=== PATIENT | male | born 1990 | race Caucasian/White ===

== ENCOUNTER 2017-02-02 03:48 | Inpatient (IN) | payer BC ==
[2017-02-02] VITALS (18 sets, daily range): BP systolic 103–138; BP diastolic 47–81
[~2017-02-02] VITALS: Ht 185.4 cm; Wt 98.0 kg
--- NOTE | 2017-02-02 03:50 | NUR ---
RESPIRATORY THERAPIST AT THE BEDSIDE
--- NOTE | 2017-02-02 03:53 | NUR ---
DR PIZARRO AT BEDSIDE FOR MSE
--- NOTE | 2017-02-02 03:57 | NUR ---
PT ON CARDIAC MONITORING; VSS; SPO2 IS 97% ON 15LPM NRM
[2017-02-02] MEDS ORDERED: PIPERACILLIN SODIUM/TAZOBACTAM 3.375 G in IV DEXTROSE 5% 50 ML IV ONE (04:00)
[2017-02-02] MEDS ORDERED: ALBUTEROL SULFATE 2.5 MG/3 ML NEBU NEB ONE (04:00)
[2017-02-02] MEDS ORDERED: INSULIN REGULAR, HUMAN 1,000 UNITS/10 ML VIAL IV ONE (04:00)
[2017-02-02] MEDS ORDERED: SERT50TA PO (04:05)
[2017-02-02] MEDS ORDERED: BUPR-51 PO (04:05)
[2017-02-02] MEDS ORDERED: TRAZ-147 PO (04:05)
[2017-02-02] MEDS ORDERED: GABA-534 PO (04:05)
[2017-02-02] MEDS ORDERED: QUET50TA22 PO (04:05)
[2017-02-02] MEDS ORDERED: ALBUTEROL SULFATE 2.5 MG/3 ML NEBU ONE (04:11)
[2017-02-02] MEDS ORDERED: INSU3INS6 SUBCUT (04:21)
[2017-02-02] MEDS ORDERED: VALE450C PO (04:21)
[2017-02-02] MEDS ORDERED: INSU100I14 SUBCUT (04:21)
--- NOTE | 2017-02-02 04:21 | NUR ---
REP JOHNIE SANTOYO FROM [facility] , CAME TO DROP OFF PTS BELONGINGS AND MEDICATIONS, REP STATES THEY OFFER IOP, PT WILL NOT BE ABLE TO RETURN DUE TO PT REQUIRING HIGHER LEVER OF CARE, STATES THEY WOULD LIKE TO GET HIM INTO C-CHANGE A DETOX AND REHAB FACILITY....
[2017-02-02] MEDS ORDERED: INSULIN REGULAR, HUMAN 300 UNIT/3 ML VIAL ONE (04:42)
[2017-02-02] MEDS ORDERED: PIPERACILLIN/TAZOBACTAM/D5W 50 ML IV ONE (04:43)
[2017-02-02 04:49] LABS: BASOPHILS # (AUTO) 0.1 K/uL (0.0-8.0); BASOPHILS % (AUTO) 0.6 % (0.0-2.0); EOSINOPHILS # (AUTO) 0.1 K/uL (0.0-0.7); EOSINOPHILS % (AUTO) 0.6 % (0.0-7.0); HEMATOCRIT 47.2 % (40-50); HEMOGLOBIN 15.4 G/DL (14.0-18.0); LYMPHOCYTES # (AUTO) 1.6 K/UL (0.8-4.8); LYMPHOCYTES % (AUTO) 10.3 % (20.5-51.5); MEAN CORPUSCULAR HEMOGLOBIN 28.5 UUG (27.0-31.0); MEAN CORPUSCULAR HGB CONC 33 g/dL (32.0-37.0); MEAN CORPUSCULAR VOLUME 87.7 FL (82.0-92.0); MONOCYTES # (AUTO) 0.7 K/UL (0.1-1.30); MONOCYTES % (AUTO) 4.4 % (0.0-11.0); NEUTROPHILS # (AUTO) 12.7 K/UL (1.8-8.9); NEUTROPHILS % (AUTO) 84.1 % (38.5-71.5); PLATELET COUNT (AUTO) 219 K/UL (150-450); RED BLOOD CELL COUNT(AUTO) 5.39 MIL/UL (4.7-6.1); WHITE BLOOD COUNT (AUTO) 15.2 K/UL (4.0-11.2)
[2017-02-02 04:52] LABS: CREATININE 1.2 mg/dL (0.6-1.3); POTASSIUM 4.4 mmol/L (3.5-5.1)
--- NOTE | 2017-02-02 05:01 | NUR ---
BS 395; 6 UNITS REGULAR INSULIN GIVEN IV.
[2017-02-02 05:05] LABS: BILIRUBIN,DIRECT 0.1 mg/dL (0.0-0.2); BILIRUBIN,TOTAL 0.7 mg/dL (0.2-1.0); TOTAL PROTEIN, SERUM 8.1 g/dL (6.4-8.2)
[2017-02-02] MEDS ORDERED: PANTOPRAZOLE SODIUM 40 MG VIAL IV ONE ×2 (05:15→06:00)
[2017-02-02] MEDS ORDERED: ONDANSETRON 4 MG/2 ML VIAL IV ONE (05:15)
[2017-02-02] MEDS ORDERED: PANTOPRAZOLE SODIUM IV 80 MG in IV DEXTROSE 5% 100 ML IV ONE (05:15)
[2017-02-02] MEDS ORDERED: PANTOPRAZOLE SODIUM 40 MG VIAL ONE (05:16)
[2017-02-02] MEDS ORDERED: ONDANSETRON 4 MG/2 ML VIAL ONE (05:16)
--- NOTE | 2017-02-02 05:21 | NUR ---
Call placed to [facility], Dr. Guillermo will be paged.
[2017-02-02] MEDS ORDERED: ALBUTEROL SULFATE 2.5 MG/3 ML NEBU NEB PRN (05:30)
[2017-02-02] MEDS ORDERED: VANCOMYCIN IV 1 G in PREMIXED 0 EACH IV SCH (05:30)
[2017-02-02] MEDS ORDERED: VALERIAN ROOT 450 MG PO SCH (05:30)
[2017-02-02] MEDS ORDERED: GABAPENTIN 300 MG CAPSULE PO SCH (05:30)
[2017-02-02] MEDS ORDERED: DEXTROSE 50% 50 ML DISP.SYRIN IV PRN (05:30)
[2017-02-02] MEDS ORDERED: INSULIN DETEMIR 300 UNIT/3 ML CARTRIDGE SQ SCH (05:30)
[2017-02-02] MEDS ORDERED: IV NS 1000 ML 1,000 ML IV ONE (06:00)
--- NOTE | 2017-02-02 06:25 | NUR ---
Admitted pt to CCU Room-1 under the services of Dr. Guillermo ([facility]). Dx: Heroin induced pulmonary edema. Pt awake, responsive to some questions. Restless and tends to DC O2 despite numerous instructions. Safety and fall precautions observed at all times. Pt not combative and can cooperate except he does not keep O2 on and would readily desaturate without O2. Please see initial physical assessment. Dr. Guillermo notified of admission to CCU.
[2017-02-02] MEDS: BLOOD SUGAR DIAGNOSTIC 1 EACH STRIP VI SCH ×6 (06:28→23:46)
--- NOTE | 2017-02-02 06:45 | NUR ---
Father from [place] called in for condition update; obtained his phone number and pt's mother's contact info.
[2017-02-02 07:29] LABS: ABG BASE EXCESS -1.7 mmol/L; ABG HCO3 26.1 mmol/L; ABG PH 7.286 (7.350-7.450); ABG PO2 52.8 mmHg (75.0-100.0); ABG SITE RIGHT RADIAL; ABG TOTAL HEMOGLOBIN 16.3 G/dL (13.5-18.0); COHb 1.5 % (0.5-1.5); MetHb 0.4 % (0.0-1.5); O2Hb 82.9 % (94.0-97.0); VENT MODE Nasal Cannula
[2017-02-02] MEDS ORDERED: GABAPENTIN 300 MG CAPSULE PO PRN (08:00)
--- NOTE | 2017-02-02 08:00 | NUR ---
CALLED SECURITY. PATIENT IS RESTLESS, PATIENT KEEPS GETTING OUT OF BED, REPEATEDLY TAKES OFF O2 AND PATIENT BEGINS TO DESATURATE. PATIENT IS NPO AT THIS TIME AND PATIENT IS DEMANDING WATER, THREATENING TO LEAVE THE HOSPITAL. PATIENT IS VERY IN AND OUT DROWSY/LETHARGIC, WEAK AND UNSTEADY ON HIS FEET. PATIENT IS BECOMING AGITATED DOES NOT WANT TO FOLLOW INSTRUCTIONS PARTICULARLY SAFETY PRECAUTIONS. SECURITY ON STAND BY AT THIS TIME WHILE INFORMING THE DOCTOR AND SUPPLEMENTAL NURSE IS IN THE UNIT.
--- NOTE | 2017-02-02 08:05 | NUR ---
Dr. Wasserman called in, condition report given and ABG results relayed to .
--- NOTE | 2017-02-02 08:08 | NUR ---
blood sugar 132. no insulin coverage provided d/t patient being put npo.
[2017-02-02] MEDS ORDERED: LORAZEPAM 2 MG/1 ML VIAL IV PRN (08:15)
[2017-02-02] MEDS ORDERED: MORPHINE SULFATE 4 MG/1 ML DISP.SYRIN IV PRN (08:15)
[2017-02-02] MEDS ORDERED: ONDANSETRON 4 MG/2 ML VIAL IV PRN (08:15)
[2017-02-02 08:48] LABS: BASOPHILS # (AUTO) 0.2 K/uL (0.0-8.0); EOSINOPHILS % (AUTO) 0.1 % (0.0-7.0); HEMATOCRIT 45.5 % (40-50); HEMOGLOBIN 15.6 G/DL (14.0-18.0); LYMPHOCYTES # (AUTO) 0.8 K/UL (0.8-4.8); LYMPHOCYTES % (AUTO) 3.7 % (20.5-51.5); MEAN CORPUSCULAR HEMOGLOBIN 30.1 UUG (27.0-31.0); MEAN CORPUSCULAR HGB CONC 34 g/dL (32.0-37.0); MEAN CORPUSCULAR VOLUME 87.7 FL (82.0-92.0); MONOCYTES # (AUTO) 0.7 K/UL (0.1-1.30); MONOCYTES % (AUTO) 3.1 % (0.0-11.0); NEUTROPHILS # (AUTO) 20.4 K/UL (1.8-8.9); NEUTROPHILS % (AUTO) 92.1 % (38.5-71.5); PLATELET COUNT (AUTO) 257 K/UL (150-450); RED BLOOD CELL COUNT(AUTO) 5.19 MIL/UL (4.7-6.1); WHITE BLOOD COUNT (AUTO) 22.1 K/UL (4.0-11.2)
[2017-02-02 08:50] LABS: BILIRUBIN,TOTAL 1.1 mg/dL (0.2-1.0); CREATININE 1.2 mg/dL (0.6-1.3); MAGNESIUM 1.6 mg/dL (1.8-2.4); PHOSPHOROUS 4.1 mg/dL (2.5-4.9); POTASSIUM 4.6 mmol/L (3.5-5.1); TOTAL PROTEIN, SERUM 7.7 g/dL (6.4-8.2)
[2017-02-02] MEDS ORDERED: buPROPion XL 150 MG TAB.SR.24H PO SCH (09:00)
[2017-02-02] MEDS: LEVOFLOXACIN 500 MG/D5W 500 MG in PREMIXED 1 EACH IV SCH (10:19)
--- NOTE | 2017-02-02 12:30 | NUR ---
PATIENT GETS OUT OF BED TO UNTANGLE IV, MONITOR WIRES, AND O2. ON THE BED IS SMALL BLACK SUBSTANCE WRAPPED IN PLASTIC WRAP, NOTED WHEN PATIENT SAW IT GRABBED IT RIGHT AWAY WITH NO HESITATION APPEARED TO KNOW WHAT WAS AND SEEM TO HAVE HIDDEN THE SUBSTANCE IN HIS UNDERWEAR. PATIENT WENT BACK TO BED. NOTED EARLIER ALL MORNING PATIENT HAD BEEN RESTLESS SCRATCHING AND PLACING HIS HAND IN AND OUT OF UNDERWEAR, TO BE UNCOMFORTABLE, ASKED PATIENT IF THERE WAS SOMETHING WRONG; PATIENT STATED HE WAS JUST SCRATCHING.
[2017-02-02] MEDS: INSULIN REGULAR, HUMAN 300 UNIT/3 ML VIAL SQ PRN ×3 (12:35→23:48)
--- NOTE | 2017-02-02 13:00 | NUR ---
PATIENT AGAIN GETS UP OUT OF BED TO USE URINAL. WHILE FINISHING USING THE URINAL FOUND THE BLACK SUBSTANCE ON THE FLOOR WRAPPED IN PLASTIC. PICKED IT UP AND PLACED IN BIO HAZARD BAG. CALLED THE SUPERVISOR LOCOMOTIVE TO INFORM ITEM FOUND WHICH APPEARS TO LOOK LIKE BLACK HEROIN. PATIENT REMAINS IN HIS ROOM DIGGING IN HIS UNDER WEAR REPEATEDLY TRIES TO GET UP AND MOVING BED SHEETS AROUND AND HIS GOWN IF LOOK FOR SOMETHING. ASKED PATIENT IF HE NEEDS ANYTHING, PATIENT JUST STATES MUMBLING HE THINKS HE LOST SOMETHING OR THAT HE IS LOOKING FOR SOMETHING BUT DOES NOT WANT TO STATE WHAT IT IS WHEN ASKED, AND WAITS UNTIL I LEAVE HIS ROOM.
--- NOTE | 2017-02-02 14:06 | NUR ---
Clinical Pharmacy Note: Vancomycin Dosing per Pharmacy Subjective: Vancomycin IV to start in this 27 y/o male for suspected infection (waiting for MD note, increased wbc) Objective: BUN 21 Scr 1.2 WBC 21 Temperature 98.3 One dose vanco given this am @ 0753 Assessment/Plan: Will start regimen of 1500mg, q10hrs for expected trough of 15.4. First dose will be tonight at 1800. Will order trough before 4th scheduled dose (not ordered yet). Will change to dose per level if renal fxn is to become unstable. Will follow daily
[2017-02-02] MEDS: PIPERACILLIN SODIUM/TAZOBACTAM 4.5 G in IV DEXTROSE 5% 50 ML IV SCH ×2 (14:08→22:20)
[2017-02-02] MEDS: MAGNESIUM SULFATE/D5W 100 ML IV SCH ×2 (16:45→17:26)
[2017-02-02 16:58] LABS: *BILIRUBIN,URIN NEGATIVE (NEGATIVE); *BLOOD, URINE NEGATIVE (NEGATIVE); *CLARITY,URINE CLEAR (CLEAR); *COLOR,URINE YELLOW (YELLOW); *KETONES,URINE NEGATIVE (NEGATIVE); *PROTEIN,URINE NEGATIVE (NEGATIVE); *UROBILINOGEN,URINE 0.2 E.U./dl (NORMAL); LEUKOCYTE ESTERASE ,URINE NEGATIVE (NEGATIVE); NITRITE, URINE NEGATIVE (NEGATIVE); UGLUCOSE NEGATIVE (NEGATIVE)
[2017-02-02] MEDS: VANCOMYCIN IV 1,500 MG in IV DEXTROSE 5% 500 ML IV SCH (17:26)
[2017-02-02 17:32] LABS: WBC,URINE 0-3 /HPF (0-3)
--- NOTE | 2017-02-02 17:49 | NUR ---
PATIENT IS ASKING IF WE PROVIDE CIGARETTES. WILL INFORM ALCIRA FOR NICOTINE PATCH.
--- NOTE | 2017-02-02 17:52 | NUR ---
PATIENT SMOKES THE VAPOR CIGARETTES, DOES NOT WANT NICOTINE PATCH.
--- NOTE | 2017-02-02 19:00 | NUR ---
Received report from MOISE Hutchins. Pt currently asleep. VS stable, pt takes out O2 on and off, desats as low as 89%.Educate pt regarding importance of O2 compliance, verbalized understanding, however needs reinforcement.
--- NOTE | 2017-02-02 20:00 | NUR ---
Blood sugar 261 mg/dl, covered w/ 12 units of regular insulin.
[2017-02-02] MEDS ORDERED: QUETIAPINE FUMARATE 50 MG PO SCH (21:00)
[2017-02-02] MEDS ORDERED: TRAZODONE 100 MG TABLET PO SCH (21:00)
[2017-02-02] MEDS ORDERED: SERTRALINE HCL 50 MG TABLET PO SCH ×2 (21:00)
[2017-02-02] MEDS ORDERED: QUETIAPINE FUMARATE 25 MG TABLET PO SCH (21:00)
--- NOTE | 2017-02-02 21:00 | NUR ---
Pt's desaturate intermittently, pt taking it out on and off, educated pt for the second time importance of oxygen compliance. Inspite of 3L pt satting 91-92%, increased O2 to 4L, pt satting erb44-69%.Encouraged pt to do deep breathing exercises 10 breaths /hour when awake, verbalized understanding.
--- NOTE | 2017-02-02 23:45 | NUR ---
Blood sugar 329mg/dl covered with 16 units of regular insulin.
--- NOTE | 2017-02-02 23:54 | NUR ---
Blood sugar 329mg/dl covered w/ 16 units of regular insulin. Pt has been eating snacks, pt requested for another sandwich (2nd time post dinner).
[2017-02-03] VITALS: BP 92/46
[2017-02-03 01:00] VITALS: BP 92/41
[2017-02-03] MEDS: IV NS 1000 ML 1,000 ML IV PRN ×2 (01:46→16:52)
--- NOTE | 2017-02-03 04:20 | NUR ---
BS 54mg/dl, given OJ 1 cup but pt requested for another cup and sandwich. Pt is fully awake and cooperative.VS stable.
[2017-02-03] MEDS: VANCOMYCIN IV 1,500 MG in IV DEXTROSE 5% 500 ML IV SCH ×2 (04:34→15:08)
[2017-02-03] MEDS: BLOOD SUGAR DIAGNOSTIC 1 EACH STRIP VI SCH ×5 (04:34→20:18)
--- NOTE | 2017-02-03 04:45 | NUR ---
BS recheck post sandwich and OJ BS 91mg/dl.Pt persistent to request some more snacks, given mukund crackers (3 pcs).
[2017-02-03] MEDS: PANTOPRAZOLE SODIUM 40 MG VIAL IV SCH (06:57)
[2017-02-03] MEDS: PIPERACILLIN SODIUM/TAZOBACTAM 4.5 G in IV DEXTROSE 5% 50 ML IV SCH ×3 (07:00→22:15)
--- NOTE | 2017-02-03 07:00 | NUR ---
Shift change. Report to mario PHIPPS.
--- NOTE | 2017-02-03 07:00 | NUR ---
Hanged zosyn IVPB. Pt continued sleeping. O2 sat 96% on 4L.
[2017-02-03 07:36] LABS: BASOPHILS # (AUTO) 0.1 K/uL (0.0-8.0); BASOPHILS % (AUTO) 0.5 % (0.0-2.0); EOSINOPHILS # (AUTO) 0.1 K/uL (0.0-0.7); LYMPHOCYTES # (AUTO) 1.6 K/UL (0.8-4.8); LYMPHOCYTES % (AUTO) 10.9 % (20.5-51.5); MEAN CORPUSCULAR HEMOGLOBIN 30.2 UUG (27.0-31.0); MEAN CORPUSCULAR HGB CONC 34 g/dL (32.0-37.0); MEAN CORPUSCULAR VOLUME 87.8 FL (82.0-92.0); MONOCYTES # (AUTO) 0.7 K/UL (0.1-1.30); MONOCYTES % (AUTO) 4.9 % (0.0-11.0); NEUTROPHILS # (AUTO) 12.1 K/UL (1.8-8.9); NEUTROPHILS % (AUTO) 82.7 % (38.5-71.5)
[2017-02-03 07:43] LABS: RED BLOOD CELL COUNT(AUTO) 4.17 MIL/UL (4.7-6.1); WHITE BLOOD COUNT (AUTO) 14.6 K/UL (4.0-11.2)
[2017-02-03 07:44] LABS: HEMATOCRIT 36.6 % (40-50); HEMOGLOBIN 12.6 G/DL (14.0-18.0); PLATELET COUNT (AUTO) 192 K/UL (150-450)
[2017-02-03 08:00] VITALS: BP 113/59
[2017-02-03 08:14] LABS: BILIRUBIN,TOTAL 0.7 mg/dL (0.2-1.0); CREATININE 1.1 mg/dL (0.6-1.3); MAGNESIUM 1.9 mg/dL (1.8-2.4); PHOSPHOROUS 2.9 mg/dL (2.5-4.9); POTASSIUM 4.1 mmol/L (3.5-5.1); TOTAL PROTEIN, SERUM 6.4 g/dL (6.4-8.2)
[2017-02-03] MEDS: LEVOFLOXACIN 500 MG/D5W 500 MG in PREMIXED 1 EACH IV SCH (08:14)
[2017-02-03] MEDS: INSULIN REGULAR, HUMAN 300 UNIT/3 ML VIAL SQ PRN ×3 (08:40→16:50)
[2017-02-03 10:35] LABS: BAND % (MANUAL) 6 % (0-10); EOSINOPHILS % (MANUAL) 1 % (0-8); LYMPHOCYTES % (MANUAL) 12 % (20-40); MONOCYTES % (MANUAL) 6 % (2-10); NEUTROPHILS % (MANUAL) 75 % (42-75)
--- NOTE | 2017-02-03 11:19 | NUR ---
Spoke with Dr. Draper on the telephone and stated that pt is okay to be downgraded to telemetry status.
[2017-02-03 12:00] VITALS: BP 124/72
--- NOTE | 2017-02-03 14:00 | NUR ---
Pt transferred to #[id number] telemetry. personnel monitor tele box applied. Pt stable and nad noted upon transfer. Full telephone SBAR report given to MOISE May.
--- NOTE | 2017-02-03 14:00 | NUR ---
SBAR REPORT RECEIVED FROM HERNAN PHIPPS. PATIENT TRANSFERRED FROM CCU. PATIENT ALERT AND ORIENTED WITH NO S/S OF DISTRESS. BRP.
--- NOTE | 2017-02-03 15:26 | NUR ---
Clinical Pharmacy Note: Vancomycin Dosing per Pharmacy Subjective: Vancomycin IV to continue in this 27 y/o male for sepsis vs SIRS(possible aspiration) Objective: BUN 22 Scr 1.1 WBC 14.6 Temperature 98.7 Assessment/Plan: Will continue regimen of 1500mg, q10hrs for expected trough of 15.4. Second dose given today at 0434. Will order trough before 4th scheduled dose (ordered tonight at 2330). Will change to dose per level if renal fxn is to become unstable. Will follow daily
[2017-02-03] MEDS ORDERED: GABAPENTIN 300 MG CAPSULE PO PRN (15:45)
[2017-02-03 15:55] VITALS: BP 118/57
[2017-02-03] MEDS ORDERED: DEXTROSE 50% 50 ML DISP.SYRIN IV PRN (16:30)
[2017-02-03] MEDS ORDERED: INSULIN REGULAR, HUMAN 300 UNITS/3 ML VIAL SQ PRN (16:30)
[2017-02-03] MEDS: NICOTINE 21 MG/24HR PATCH TD SCH (16:45)
--- NOTE | 2017-02-03 18:35 | NUR ---
END OF SHIFT NOTE: PATIENT IN NO ACUTE DISTRESS THROUGHOUT SHIFT. VSS. DENIED PAIN. IVF RUNNING. BRP. NEEDS MET BY STAFF.
[2017-02-03 20:00] VITALS: BP 130/79
[2017-02-03] MEDS: INSULIN DETEMIR 300 UNIT/3 ML CARTRIDGE SQ SCH (20:20)
[2017-02-03] MEDS ORDERED: MORPHINE SULFATE 2 MG/1 ML DISP.SYRIN IV STA (20:57)
[2017-02-03] MEDS ORDERED: MORPHINE SULFATE 2 MG/1 ML DISP.SYRIN ONE (21:20)
[2017-02-04] VITALS: BP 126/75
[2017-02-04] MEDS: VANCOMYCIN IV 1,500 MG in IV DEXTROSE 5% 500 ML IV SCH ×3 (00:08→20:56)
[2017-02-04] MEDS ORDERED: ACETAMINOPHEN 325 MG TABLET PO PRN (01:00)
[2017-02-04] MEDS: MORPHINE SULFATE 4 MG/1 ML DISP.SYRIN IV PRN ×2 (01:43→10:55)
[2017-02-04 04:00] VITALS: BP 127/74
[2017-02-04] MEDS: PIPERACILLIN SODIUM/TAZOBACTAM 4.5 G in IV DEXTROSE 5% 50 ML IV SCH ×3 (05:17→22:33)
--- NOTE | 2017-02-04 06:30 | NUR ---
PT SLEPT INTERMITTENTLY, IN NO ACUTE DISTRESS. PT IS ON TELE SINUS RHYTHM. PAIN MANAGEMENT ORDERED, IVF INFUSING, NO INFILTRATION NOTED, ACCUCHECKS ORDERED. SAFETY MEASURES IN PLACE, CALL LIGHT WITHIN REACH, BED ALARM ON. WILL CONTINUE TO MONITOR.
[2017-02-04] MEDS: PANTOPRAZOLE SODIUM 40 MG VIAL IV SCH (06:39)
[2017-02-04] MEDS: BLOOD SUGAR DIAGNOSTIC 1 EACH STRIP VI SCH ×4 (06:40→20:55)
--- NOTE | 2017-02-04 08:44 | NUR ---
PATIENT IN BED RESTING, STATED THAT HE IS TIRED USING INAPPROPRIATE WORDS. NO S/S OF DISTRESS NOTED. C/O OF MILD HEADACHE. BS 166, REFUSED TO HAVE COVERAGE AT THE MOMENT, STATING HE WILL TAKE AFTER BREAKFAST. I CAME BACK AFTER BRINGING HIS BREAKFAST, REFUSED TO GET HIS INSULIN AGAIN. I WILL CONTINUE MONITORING.
[2017-02-04] MEDS: IV NS 1000 ML 1,000 ML IV PRN (09:14)
[2017-02-04] MEDS: NICOTINE 21 MG/24HR PATCH TD SCH (09:14)
[2017-02-04] MEDS: LEVOFLOXACIN 500 MG/D5W 500 MG in PREMIXED 1 EACH IV SCH (09:14)
[2017-02-04] MEDS: INSULIN REGULAR, HUMAN 300 UNIT/3 ML VIAL SQ PRN ×3 (11:45→21:02)
--- NOTE | 2017-02-04 12:04 | NUR ---
Clinical Pharmacy Note: Vancomycin Dosing per Pharmacy Subjective: Vancomycin IV to continue in this 27 y/o male for sepsis vs SIRS (possible aspiration) Objective: BUN 22 (02/03) Scr 1.1 (02/03) WBC 14.6 (02/03) Temperature 99.1 Assessment/Plan: 1400 dose on 02/03 was not given (bag on pole but full by night RN -but documented as given. Full bag with IV tubing attached was returned to rx on 02/04 am). Will continue same dose of 1500mg IVPB q10hrs for today. Will re-schedule trough level (ordered for 02/05 at 0530- RN aware to hold 6am dose if vanco trough level above 20 mcg/ml). Pharmacy shall check level in am & adjust the dose if needed. Will follow daily
[2017-02-04 12:17] LABS: BASOPHILS # (AUTO) 0.4 K/uL (0.0-8.0); BASOPHILS % (AUTO) 2.7 % (0.0-2.0); EOSINOPHILS # (AUTO) 0.2 K/uL (0.0-0.7); EOSINOPHILS % (AUTO) 1.2 % (0.0-7.0); HEMATOCRIT 40.8 % (40-50); HEMOGLOBIN 13.8 G/DL (14.0-18.0); LYMPHOCYTES # (AUTO) 1.3 K/UL (0.8-4.8); LYMPHOCYTES % (AUTO) 9.6 % (20.5-51.5); MEAN CORPUSCULAR HEMOGLOBIN 29.7 UUG (27.0-31.0); MEAN CORPUSCULAR HGB CONC 34 g/dL (32.0-37.0); MONOCYTES # (AUTO) 0.7 K/UL (0.1-1.30); MONOCYTES % (AUTO) 5.1 % (0.0-11.0); NEUTROPHILS # (AUTO) 11.2 K/UL (1.8-8.9); NEUTROPHILS % (AUTO) 81.4 % (38.5-71.5); PLATELET COUNT (AUTO) 205 K/UL (150-450); RED BLOOD CELL COUNT(AUTO) 4.63 MIL/UL (4.7-6.1); WHITE BLOOD COUNT (AUTO) 13.8 K/UL (4.0-11.2)
--- NOTE | 2017-02-04 12:42 | NUR ---
PATIENT IS NOW COMPLAINT WITH HIS MEDS. BS IS CONTROL. WILL CONTINUE MONITORING.
[2017-02-04 13:06] LABS: BAND % (MANUAL) 1 % (0-10); EOSINOPHILS % (MANUAL) 3 % (0-8); LYMPHOCYTES % (MANUAL) 7 % (20-40); MONOCYTES % (MANUAL) 5 % (2-10); NEUTROPHILS % (MANUAL) 84 % (42-75)
[2017-02-04] MEDS: HYDROMORPHONE 1 MG/1 ML DISP.SYRIN IV PRN ×3 (14:21→22:33)
[2017-02-04] MEDS: GABAPENTIN 300 MG CAPSULE PO PRN ×2 (14:22→20:54)
[2017-02-04 16:10] VITALS: BP 146/85
--- NOTE | 2017-02-04 18:01 | NUR ---
Patient ate In n out brought it from a friend. Educated patient about the right of hyperglycemia. BS was taken >390, it was repeated second 332. It was covered with insulin. Medication was given for severe headache on the temporal area, it was effective. Patient ambulated around the unit. No s/s of distress noted. Safety and comfort provided. Will continue monitoring.
[2017-02-04 19:00] VITALS: BP 120/70
--- NOTE | 2017-02-04 20:00 | NUR ---
PT RECEIVED SITTING UP IN BED AOX4, NO ACUTE DISTRESS NOTED. IVF RUNNING IN RIGHT HAND, INTACT AND PATENT AT 100CC/HR. LUNGS SOUNDS CLEAR WITH AUSCULTATION. DENIES ANY WITHDRAWAL S/S FROM HEROIN ABUSE FEW DAYS AGO PER PT. VITAL SIGNS WNL. BED IN LOW AND LOCKED POSITION, CALL LIGHT WITHIN REACH.
[2017-02-04] MEDS: INSULIN DETEMIR 300 UNIT/3 ML CARTRIDGE SQ SCH (21:00)
[2017-02-05 04:20] VITALS: BP 164/69
[2017-02-05] MEDS: PANTOPRAZOLE SODIUM 40 MG VIAL IV SCH (06:19)
[2017-02-05] MEDS: PIPERACILLIN SODIUM/TAZOBACTAM 4.5 G in IV DEXTROSE 5% 50 ML IV SCH (06:19)
[2017-02-05] MEDS: GABAPENTIN 300 MG CAPSULE PO PRN ×3 (06:23→14:17)
[2017-02-05] MEDS: HYDROMORPHONE 1 MG/1 ML DISP.SYRIN IV PRN ×3 (06:25→14:16)
[2017-02-05] MEDS: BLOOD SUGAR DIAGNOSTIC 1 EACH STRIP VI SCH ×2 (06:38→11:33)
[2017-02-05 06:44] LABS: BASOPHILS # (AUTO) 0.1 K/uL (0.0-8.0); BASOPHILS % (AUTO) 0.8 % (0.0-2.0); EOSINOPHILS # (AUTO) 0.2 K/uL (0.0-0.7); EOSINOPHILS % (AUTO) 2.5 % (0.0-7.0); HEMATOCRIT 37.8 % (40-50); HEMOGLOBIN 12.8 G/DL (14.0-18.0); LYMPHOCYTES # (AUTO) 2.4 K/UL (0.8-4.8); LYMPHOCYTES % (AUTO) 24.6 % (20.5-51.5); MEAN CORPUSCULAR HEMOGLOBIN 29.7 UUG (27.0-31.0); MEAN CORPUSCULAR HGB CONC 34 g/dL (32.0-37.0); MEAN CORPUSCULAR VOLUME 88.1 FL (82.0-92.0); MONOCYTES # (AUTO) 0.7 K/UL (0.1-1.30); MONOCYTES % (AUTO) 7.8 % (0.0-11.0); NEUTROPHILS # (AUTO) 6.2 K/UL (1.8-8.9); NEUTROPHILS % (AUTO) 64.3 % (38.5-71.5); PLATELET COUNT (AUTO) 200 K/UL (150-450); WHITE BLOOD COUNT (AUTO) 9.6 K/UL (4.0-11.2)
[2017-02-05] MEDS: IV NS 1000 ML 1,000 ML IV PRN (06:45)
--- NOTE | 2017-02-05 06:50 | NUR ---
Pt slept intermittently through out the night. fingerstick this am 167mg/dl, no s/s hyperglycemia. c/o of right side temporal pain, given dilaudid and neurontin as ordered. no acute distress noted. safety measures maintained.
[2017-02-05 07:14] LABS: CREATININE 0.8 mg/dL (0.6-1.3); MAGNESIUM 1.7 mg/dL (1.8-2.4); POTASSIUM 3.7 mmol/L (3.5-5.1)
[2017-02-05] MEDS: INSULIN REGULAR, HUMAN 300 UNIT/3 ML VIAL SQ PRN ×2 (07:35→11:35)
[2017-02-05] MEDS: VANCOMYCIN IV 1,500 MG in IV DEXTROSE 5% 500 ML IV SCH (07:35)
[2017-02-05] MEDS: NICOTINE 21 MG/24HR PATCH TD SCH (09:19)
[2017-02-05] MEDS: LEVOFLOXACIN 500 MG/D5W 500 MG in PREMIXED 1 EACH IV SCH (09:20)
[2017-02-05] MEDS ORDERED: POTASSIUM CHLORIDE 20 MEQ TAB.PRT.SR PO ONE (09:30)
[2017-02-05] MEDS ORDERED: MAGNESIUM OXIDE 400 MG TABLET PO ONE (09:30)
[2017-02-05 10:06] LABS: BAND % (MANUAL) 1 % (0-10); EOSINOPHILS % (MANUAL) 2 % (0-8); LYMPHOCYTES % (MANUAL) 24 % (20-40); MONOCYTES % (MANUAL) 6 % (2-10); NEUTROPHILS % (MANUAL) 67 % (42-75)
[2017-02-05 11:30] VITALS: BP 120/75
--- NOTE | 2017-02-05 12:15 | NUR ---
Patient been in bed awake. No s/s of distress noted during my shift. C/o of headache. medicated as ordered. Possible discharge to a detox center today. BS control. Safety and comfort provided. Will continue monitoring.
--- NOTE | 2017-02-05 12:52 | NUR ---
The patient will be discharged today to [facility] [[address], [place] [address]; Contact - Will - ] per Dr. Wasserman. The patient is in agreement with his discharge. Spoke to Will from the [facility] and he confirmed that the patient can join their program. His friend will be picking him up via private car. The patient's RN, Sil, is aware of his discharge plan and informed the patient's mother, Jovanna Guzman [ ], about the discharge.
[2017-02-05] MEDS ORDERED: AMOX-430 PO (14:33)
[2017-02-05] MEDS ORDERED: ACET325T53 PO (14:33)
[2017-02-05 15:18] VITALS: BP 118/76
--- NOTE | 2017-02-05 15:33 | NUR ---
Patient was discharge home in safe and stable condition. No s/s of distress noted. V/S wnl. A branch service representative from the detox center came to take him to the center. Discharge instructions were explained. it was signed by patient. A copy of the instructions and prescriptions were provided. Medication from pharmacy were collected and given to patient. ID and IV was removed. BS was controlled during the day. Safety and comfort provided. Patient was taken by wheelchair by MOISE Gale in safe precautions.
[2017-02-06] MEDS ORDERED: PANTOPRAZOLE SODIUM 40 MG TABLET.DR PO SCH (07:00)
== END 2017-02-05 15:27 | disposition home or self-care (01) | DRG 917 ==
LOC: ER 03:53 → CCU 05:00 → TELE 02-03 14:04 → MED 02-04 09:25
PROVIDERS: ADMIT Internal Medicine; ATTEND Internal Medicine
DX: T40.1X1A Poisoning by heroin, accidental (unintentional), initial encounter (principal); A41.9 Sepsis, unspecified organism; J69.0 Pneumonitis due to inhalation of food and vomit; J96.01 Acute respiratory failure with hypoxia; G92 Toxic encephalopathy; E10.42 Type 1 diabetes mellitus with diabetic polyneuropathy; Z79.4 Long term (current) use of insulin; Z79.899 Other long term (current) drug therapy; E10.65 Type 1 diabetes mellitus with hyperglycemia; F11.10 Opioid abuse, uncomplicated; Y92.049 Unspecified place in boarding-house as the place of occurrence of the external cause; J70.4 Drug-induced interstitial lung disorders, unspecified
CPT/HCPCS: 36415; 36600; 70030-TC; 71010; 83605; 83735; 84100; 85025; 85730; 87040; 87086; 87400; 87806; 93005; C9113; J1170; J1815; J1956; J2060; J2270; J2405; J2543; J3370; J3475; J7030; J7060